=== PATIENT | male | born 1950 | race Caucasian/White ===

== ENCOUNTER 2025-07-06 13:14 | Inpatient (IN) | payer OTHER, MEDICARE ==
[~2025-07-06] VITALS: Ht 190.5 cm; Wt 80.0 kg
--- NOTE | 2025-07-06 13:29 | ELECTROCARDIOGRAPH REPORT ---
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
--- NOTE | 2025-07-06 14:27 | RADIOLOGY REPORT ---
CHEST RADIOGRAPH Indication: CP Technique: Single frontal view of the chest was obtained Comparison: None FINDINGS: Lines and Tubes: None Lungs: No focal consolidation. Pleura: No effusion. No pneumothorax. Cardiomediastinal contours: Unremarkable Bones: No acute osseous abnormality. IMPRESSION: No acute cardiopulmonary disease.
[2025-07-06 14:29] LABS: MEAN PLATELET VOLUME 6.7 FL (7.4-10.4); RED CELL DISTRIBUTION WIDTH 27.9 % (11.5-14.5)
[2025-07-06 14:47] LABS: CREATININE 1.27 MG/DL (0.60-1.10); PRO BRAIN NATRIURETIC PEPTIDE 1441 PG/ML (0-125); TOTAL CARBON DIOXIDE 29.5 MMOL/L (24-32); eCRCL 59 ML/MIN; eGFR 56 ML/MIN
[2025-07-06 15:07] LABS: PLATELET ESTIMATE NORMAL
--- NOTE | 2025-07-06 16:00 | Physician Documentation ---
History of Present Illness General Chief Complaint: Weakness Stated Complaint: MULTIPLE MED COMPLAINTS Time Seen by MD: 15:30 History of Present Illness Initial Comments Patient is a 74-year-old male with a history of lifelong smoking (he quit five years ago) and COPD (takes daily Spiriva and has a home nebulizer which he rarely uses) on oxygen at 4 L at home. He comes in today for generalized weakness and 20 lb weight loss over the past six weeks. Medication Reconciliation Allergies: Coded Allergies: No Known Allergies (Unverified , 07/06/25) Scheduled Ascorbic Acid* (Vitamin C*), 1 TAB PO Q12H, (Reported) Aspirin (Aspirin), 1 TAB PO DAILY, (Reported) Atorvastatin Calcium* (Lipitor*), 1 TAB PO DAILY, (Reported) Carvedilol (Carvedilol), 1 TAB PO Q12H, (Reported) Carvedilol* (Coreg*), 1 TAB PO Q12H, (Reported) Empagliflozin (Jardiance), 1 TAB PO DAILY, (Reported) Lisinopril (Lisinopril), 0.5 TAB PO DAILY, (Reported) Omeprazole (Prilosec), 1 CAP PO DAILY, (Reported) Scheduled PRN Clonazepam (Klonopin), 1 TAB PO Q12H PRN PRN for anxiety, (Reported) Miscellaneous Medications [vit d 3], 25 MCG PO, (Reported) Review of Systems ROS Constitutional: 20 lb weight loss and low-grade fever over the past several weeks. HEENT: Denies hearing loss, sinus pressure or visual changes. Respiratory: Chronic cough and shortness of breath, worsening Cardiovascular: Denies chest pain, pain while walking (claudication), edema or palpitations. Gastrointestinal: Denies abdominal pain, blood in stool, constipation, diarrhea, heartburn, loss of appetite, nausea or vomiting. Genitourinary: Denies painful urination (dysuria), excessive amount of urine (polyuria) or urinary frequency. Metabolic/Endocrine: Denies cold intolerance, heat intolerance, excessive thirst (polydipsia) or excessive hunger (polyphagia). Neurological: Denies dizziness, extremity numbness, extremity weakness, headaches, seizures or tremors. Psychiatric: Denies anxiety or depression. Integumentary: Rash on upper anterior chest and on the back Musculoskeletal: Denies back pain, joint pain, joint swelling or neck pain. Hematologic: Denies easily bleeding, easily bruises, lymphedema or issues with blood clots. Immunologic: Denies food allergies or seasonal allergies. Physical Exam Physical Exam Vital Signs: Temperature: 97.8, Source: Oral, Heart Rate: 90, Respiratory Rate: 19, BP: 113/76, Pulse Oximetry: 98, Weight: 80.000 Oxygen Flow Rate: 4.0 Physical Exam Physical Exam Vitals and nursing note reviewed. Constitutional: General: Patient is awake, alert, oriented x 4 in no acute distress and well appearing. Speech is clear and lucid. Appearance: Normal appearance. Patient is not ill-appearing, toxic-appearing or diaphoretic. HENT: Head: Normocephalic and atraumatic. Mouth/Throat: Mouth: Mucous membranes are moist. Pharynx: Oropharynx is clear. Eyes: General: No scleral icterus. Extraocular Movements: Extraocular movements intact. Pupils: Pupils are equal, round, and reactive to light. Neck: Supple, no Kernig or Brudzinski sign. Cardiovascular: Rate and Rhythm: Normal rate and regular rhythm. Heart sounds: No murmur heard. Pulmonary: Effort: No respiratory distress. Breath sounds: No wheezing, rhonchi or rales. Abdominal: General: There is no distension. Palpations: There is no fluid wave, hepatomegaly or mass. Tenderness: There is no abdominal tenderness. There is no guarding. Musculoskeletal: General: No swelling or deformity. Skin: Coloration: Skin is not jaundiced. Findings: Maculopapular rash of the back and upper chest anteriorly Neurological: Mental Status: Patient is alert. Progress Results/Orders Results/Orders Orders - ANNITA CHING MD Chest,Single View (07/06/25 13:41) Monitor (07/06/25 13:25) Saline Lock (07/06/25 13:25) Oxygen (07/06/25 13:25) Hs Troponin I W Calculations (07/06/25 16:25) Urinalysis, Cult If Indicated (07/06/25 15:51) CMP (07/06/25 15:51) Drug Screen, Urine (07/06/25 15:51) Ethanol (07/06/25 15:51) LA (07/06/25 15:51) Culture Blood (07/06/25 15:51) MG (07/06/25 15:51) Page Hospitalist (07/06/25 16:11) Completed Orders - ANNITA CHING MD Chest,Single View (07/06/25 13:41) Cbc/Diff (07/06/25 13:25) BMP (07/06/25 13:25) PBNP (07/06/25 13:25) Electrocardiogram (07/06/25 13:25) Hs Troponin I W Calculations (07/06/25 13:25) Hs Troponin I W Calculations (07/06/25 15:25) Vital Signs 07/06/25 07/06/25 07/06/25 13:18 15:09 16:14 Temp 97.8 Pulse 96 90 Resp 19 B/P (MAP) 96/60 113/76 (88) Pulse Ox 95 98 95 O2 Delivery Nasal Cannula* O2 Flow Rate 4.0 4 FiO2 36 Laboratory Tests Test 07/06/25 14:02 07/06/25 15:42 White Blood Count 9.1 Red Blood Count 3.60 L Hemoglobin 10.2 L Hematocrit 31.5 L Mean Corpuscular Volume 87.5 Mean Corpuscular Hemoglobin 28.4 Mean Corpuscular Hemoglobin Concent 32.4 L Red Cell Distribution Width 27.9 H Platelet Count 361 Mean Platelet Volume 6.7 L Neutrophils (%) (Auto) 79.0 H Lymphocytes (%) (Auto) 10.4 L Monocytes (%) (Auto) 6.2 Eosinophils (%) (Auto) 3.3 Basophils (%) (Auto) 1.1 H Neutrophils # (Auto) 7.2 Lymphocytes # (Auto) 1.0 L Monocytes # (Auto) 0.6 Eosinophils # (Auto) 0.3 Basophils # (Auto) 0.1 CBC Comment Platelet Estimate Normal Red Blood Cell Morphology Perf Polychromasia 1+ Basophilic Stippling Anisocytosis 3+ Schistocytes Few Sodium Level 135 Potassium Level 4.4 Chloride Level 100 Carbon Dioxide Level 29.5 Anion Gap 6 L Blood Urea Nitrogen 18 Creatinine 1.27 H Estimated GFR/1.73 m2 56 BUN/Creatinine Ratio 14.2 Glucose Level 109 H Calcium Level 8.9 Troponin I High Sensitivity 58 43 Pro-B-Type Natriuretic Peptide 1441 H Albumin 3.0 L Chemistry Comments Troponin I High Sens Percent Delta 25 Troponin I Hi Sens Absolute Change -15 Medical Decision Making Findings This 74-year-old man with essentially lifelong smoking history, COPD has had unintended weight loss over the past several weeks, a low-grade fever and increasing shortness of breath. I am going to get him admitted for further evaluation. Departure Disposition: ADMITTED INPATIENT Admitted to Inpatient Unit: to hospitalist Admission Level of Care: Med/Surg Impression: Primary Impression: Generalized weakness Additional Impressions: Weight loss, abnormal Fever Condition: Stable Referrals: NO PRIMARY CARE PROVIDER (PCP) Signature Scribe Signature: . Attestation: . ANNITA CHING MD Jul 06, 2025 16:00
[2025-07-06] MEDS ORDERED: vit d 3 PO (16:13)
[2025-07-06] MEDS ORDERED: CLON-850 PO (16:13)
[2025-07-06] MEDS ORDERED: LISI20TA28 PO (16:13)
[2025-07-06] MEDS ORDERED: VITC500T PO (16:13)
[2025-07-06] MEDS ORDERED: EMPA25TA PO (16:13)
[2025-07-06] MEDS ORDERED: ATOR40TA PO (16:13)
[2025-07-06] MEDS ORDERED: OMEP40CA21 PO (16:13)
[2025-07-06] MEDS ORDERED: CARV-50 PO (16:13)
[2025-07-06] MEDS ORDERED: ASPI-1265 PO (16:13)
[2025-07-06] MEDS: normal saline 1000ml 1,000 ML IV SCH (16:20)
[2025-07-06] MEDS ORDERED: magnesium hydroxide 30ml (MOM) UD suspension PO PRN (16:20)
[2025-07-06] MEDS ORDERED: mag hydrox/Alum hydrox/simeth 30ml oral suspension PO PRN (16:20)
[2025-07-06] MEDS ORDERED: ondansetron/PF 4mg/2ml inj IV PRN (16:20)
[2025-07-06] MEDS ORDERED: potassium Cl 20 mEq SR tablet PO PRN ×2 (16:20)
[2025-07-06] MEDS ORDERED: magnesium sulf-water 4G/100mL 100 ML IV PRN (16:20)
[2025-07-06] MEDS ORDERED: HYDROcodone/acetaminophen 5mg/325mg tablet PO PRN (16:20)
[2025-07-06] MEDS ORDERED: magnesium sulf-water 2g/50mL 50 ML IV PRN (16:20)
[2025-07-06] MEDS ORDERED: magnesium Cl slow-release 64mg tablet PO PRN (16:20)
[2025-07-06] MEDS ORDERED: HYDROcodone/acetaminophen 10/325mg tab PO PRN (16:20)
[2025-07-06] MEDS ORDERED: ondansetron 4mg rapidly disintigrating tab PO PRN (16:20)
[2025-07-06] MEDS ORDERED: potassium Cl 40MEQ/1/2NS 520ml 520 ML IV PRN (16:20)
[2025-07-06 17:05] LABS: LEUKOCYTE ESTERASE ,URINE NEGATIVE (Neg); NITRITES, URINE NEGATIVE (Neg); OCCULT BLOOD,URINE NEGATIVE (Neg)
--- NOTE | 2025-07-06 17:06 | HISTORY AND PHYSICAL ---
History & Physical Providers to CC ~ History of Present Illness Reason for Admit\Complaint: FTT, acute COPD exacerbation, CANDIDO History of Present Illness Vadim Burris is a 74-year-old male with a past medical history of lifelong smoking, COPD on home 4L oxygen as needed, CHF, TIA who was brought to the ED accompanied by his niece with chief complaints of acutely declining stamina, generalized weakness, fatigue, increasing shortness of breath, loss of appetite, 20 lb unintentional weight loss over six weeks, intermittent low-grade fever and chills, diffuse pruritic rashes in chest and bilateral lower extremities x 6 weeks. Patient reports intermittently being on home oxygen prior to onset of reported symptoms, however due to progressively worsening shortness of breath he has been on continuous oxygen for the past six weeks. Patient denies prior CT/CAD, CVA, cardiac arrhythmia, DVT/PE, or GIB. Patient denies known malignancy. Patient denies chest pain, palpitations, abdominal pain, n/v/d, melena, hematochezia, hematemesis. Patient is to be admitted for further workups and treatment. Allergies: Coded Allergies: No Known Allergies (Unverified , 07/06/25) Home Medications Home Medications Active Reported [vit d 3] 25 Mcg PO Aspirin 81 Mg Tab.chew 1 Tab PO DAILY 30 Days Vitamin C* (Ascorbic Acid) 500 Mg Tablet 1 Tab PO Q12H 30 Days Prilosec (Omeprazole) 40 Mg Capsule 1 Cap PO DAILY 30 Days Lisinopril 20 Mg Tablet 0.5 Tab PO DAILY 30 Days Coreg* (Carvedilol) 12.5 Mg Tablet 1 Tab PO Q12H 30 Days Carvedilol 12.5 Mg Tablet 1 Tab PO Q12H 30 Days Klonopin (Clonazepam) 0.5 Mg Tablet 1 Tab PO Q12H PRN PRN 30 Days Jardiance (Empagliflozin) 25 Mg Tablet 1 Tab PO DAILY 30 Days Lipitor* (Atorvastatin Calcium) 40 Mg Tablet 1 Tab PO DAILY 30 Days Past Medical History Past Medical History CHF COPD TIA Hypertension Past Surgical History Surgical History Comment Noncontributory Past Social History Social History Comment Alcohol: Occasionally Tobacco: Former smoker, quit 5 years ago, 50-pack year history Illicit drug use: Marijuana Living situation: Lives at home alone ROS ROS Other than positives in HPI, all 14 review of systems are negative Exam Vitals: Vital Signs Date Time Temp Pulse Resp B/P (MAP) Pulse Ox O2 Delivery O2 Flow Rate FiO2 07/06/25 16:23 23 07/06/25 16:14 95 Nasal Cannula* 4 36 07/06/25 15:09 90 07/06/25 13:18 97.8 General: Generalized weakness, fatigued, A&Ox 3, NAD HEENT: Normocephalic, PERRLA Neck: Supple, trachea midline, no JVD Chest: Clear to auscultation bilaterally Cardiovascular: RRR, S1&S2 Abdomen: Soft and nontender Extremities: No cyanosis/clubbing/or edema Central Nervous System: CN II-XII intact, no focal deficits Musculoskeletal: No paraspinal muscle tenderness, no muscle spasm Skin: Diffuse rashes in chest, bilateral lower extremities Diagnostic Data Last Recorded Lab Results: 07/06/25 1402 07/06/25 1402 Additional Plan Assessment & Plan FTT Acute COPD exacerbation Acute hypoxic respiratory failure 2/2 above CANDIDO vs CKD Normocytic anemia Hx Chronic tobacco abuse -vss, on 4L O2, pBNP unremarkable, bicarb wnl, CXR negative -start steroid, bronchodilators, Zithromax -follow CT chest, UA, TSH/T4, UDS, PT eval CHF HTN TIA -pending med rec DVT/VTE prophylaxis: Heparin Code status: Full code I spent a total of 35 minutes discussing Advanced Care Planning measures with the patient. Advance care planning: Discussed with patient the importance of advance care planning in case of emergent situation. We discussed various resuscitative measures/ ACP with the patient at the time of admission. Patient voiced understanding and patient has decided on a full code status. Date of Service: Jul 06, 2025 Billing Provider: ELIZABETH MEJIA Common Visit Codes: [id number] INP/OBS CARE (HIGH) Secondary Visit Codes: [id number] CARE PLAN 30 MINUTES ELIZABETH MEJIA Jul 06, 2025 17:06
[2025-07-06 17:10] LABS: UA COLLECTION TYPE URINAL
[2025-07-06] MEDS ORDERED: ipratropium/albuterol 3ml nebule NEB PRN (17:10)
[2025-07-06] MEDS ORDERED: albuterol 2.5 MG/3 ML nebule NEB PRN (17:10)
[2025-07-06 17:11] LABS: MUCUS STRANDS NONE SEEN /LPF (Neg); SQUAMOUS EPITHELIAL CELL,UR FEW /LPF (FEW)
[2025-07-06 17:15] LABS: CREATININE 1.14 MG/DL (0.60-1.10); TOTAL CARBON DIOXIDE 25.6 MMOL/L (24-32); eCRCL 66 ML/MIN; eGFR 63 ML/MIN
[2025-07-06 17:19] LABS: URINE AMPHETAMINE SCREEN NEGATIVE (Neg); URINE BARBITUATE SCREEN NEGATIVE (Neg); URINE BENZODIAZEPINES SCREEN NEGATIVE (Neg); URINE CANNABINOID SCREEN POSITIVE (Neg); URINE COCAINE SCREEN NEGATIVE (Neg); URINE METHADONE SCREEN NEGATIVE (Neg); URINE OPIATE SCREEN NEGATIVE (Neg); URINE PHENCYCLIDINE SCREEN NEGATIVE (Neg)
[2025-07-06 17:30] LABS: ETHANOL < 10 MG/DL (<10)
[2025-07-06 17:38] VITALS: PULSE 89; RESP 19; O2SAT 100
[2025-07-06] MEDS: azithromycin/NS 500mg/250ml 250 ML IV ONE (17:58)
--- NOTE | 2025-07-06 19:39 | RADIOLOGY REPORT ---
CT SCAN CHEST WITHOUT CONTRAST CLINICAL HISTORY: malignancy, FTT, SOB TECHNIQUE: Helical axial scans are obtained from the thoracic inlet to the upper abdomen without intr avenous contrast injection. Coronal and sagittal reformatted images were generated from thin-section reconstructions. One or more of the following radiation dose reduction techniques were used for this examination: automated exposure control, adjustment of the mA and/or kV according to patient size, us e of iterative reconstruction technique. COMPARISON: DI CHEST,SINGLE VIEW on DOS: 07/06/25 FINDINGS: Evaluation of vascular and other mediastinal structures is limited due to lack of contrast administra tion. Mediastinum: Heart is normal in size. Coronary artery calcifications noted. No pericardial effusion. Multiple small scattered mediastinal lymph nodes. Lung parenchyma: Multiple scattered spiculated nodules in the lower lobes. Larger lesion free to be pleural-based measures approximately 1.7 cm posteriorly in the left lower lobe. No lobar consolidatio n identified. Pleura: No sizable pleural effusion or pneumothorax. Chest wall/axillae: No axillary lymphadenopathy is noted. Upper Abdomen: No acute findings as visualized. IMPRESSION: Multiple scattered spiculated nodules in the bilateral lower lobes suspicious for malignancy.
[2025-07-06 19:55] VITALS: BP 109/57; PULSE 94; RESP 20; TEMP 98.7; O2SAT 97
[2025-07-06] MEDS: K and/or MAG REPLACEMENT MC SCH (20:00)
[2025-07-06] MEDS: docusate sod 100mg capsule PO SCH (20:00)
[2025-07-06] MEDS ORDERED: CHOL25CA2 PO (20:04)
[2025-07-06] MEDS: ipratropium/albuterol 3ml nebule NEB SCH (21:10)
[2025-07-06 21:11] VITALS: PULSE 95; RESP 16; O2SAT 90; O2SAT 92
[2025-07-06 21:21] VITALS: PULSE 88; RESP 16
[2025-07-06] MEDS: heparin, porcine 5000 units/ml vial SQ SCH (21:49)
[2025-07-06 22:00] VITALS: BP 87/40; PULSE 90; RESP 13; TEMP 97.5; O2SAT 96
[2025-07-07] VITALS (13 sets, daily range): BP systolic 103–115; BP diastolic 61–72; PULSE 80–93; RESP 12–20; TEMP 97.6–97.9; O2SAT 92–95
[2025-07-07 05:54] LABS: MEAN PLATELET VOLUME 7.1 FL (7.4-10.4); RED CELL DISTRIBUTION WIDTH 27.5 % (11.5-14.5)
[2025-07-07 06:09] LABS: CREATININE 1.01 MG/DL (0.60-1.10); TOTAL CARBON DIOXIDE 23.2 MMOL/L (24-32); eCRCL 75 ML/MIN; eGFR 73 ML/MIN
[2025-07-07] MEDS: PERFLUTREN PROTEIN-A MICROSPHR (Optison) 0.22 MG/ML 3ML VIAL IV ONE (07:20)
[2025-07-07] MEDS: pantoprazole 40mg Tablet.DR PO SCH (07:43)
[2025-07-07] MEDS: azithromycin/NS 500mg/250ml 250 ML IV SCH (07:45)
[2025-07-07] MEDS: EMPAGLIFLOZIN 25 MG TABLET PO SCH (09:24)
[2025-07-07] MEDS ORDERED: iohexol 300mg/ml 100ml inj. ONE (10:36)
--- NOTE | 2025-07-07 12:59 | RADIOLOGY REPORT ---
Procedure: CT CT CHEST ABDOMEN PELVIS W/ IV CONTRAST 07/07/2025 12:13 PM Indication: malignancy Comparison Study: CT CT CHEST on DOS: 07/06/25 Technique: Axial images were obtained and reformatted in coronal and sagittal planes prior to and fol lowing IV administration of 150 mL of Omnipaque 300. All CT scans at this medical facility are perfor med using dose modulation techniques as appropriate to a performed exam including the following: Auto mated exposure control was utilized; adjustment of the MA and/or KV according to patient size; and us e of iterative reconstruction technique. CT Dose: CTDI volume is 30 mGy. Dose-length product is 1698 mGy*cm FINDINGS: Chest: Lower neck: Unremarkable. Cardiomediastinal: Heart size is borderline. No pericardial effusion. There is coronary artery calci fication.. Lungs: Traction bronchiectasis in the lower lung zones. There is a 2 cm pleural-based nodule posteri oscar in the left lower lung zone. 2 ill-defined densities in the left lower lobe 1 abutting the major fissure measuring 1.7 cm in the other abutting the pleural surface measuring 1.6 cm There are no enlarged axillary or mediastinal lymph nodes. On bone windows there are no lytic or blastic lesions of bone Abdomen and pelvis: Hepatobiliary: Unremarkable. No focal hepatic masses. No gallstones or biliary dilatation Spleen: Unremarkable. Pancreas: Unremarkable. Adrenal Glands: Unremarkable. tract: The kidneys are normal in size bilaterally without hydronephrosis or nephrolithiasis. The u rinary bladder is unremarkable. GI tract: The stomach is grossly normal in appearance. No evidence of small bowel obstruction. The la rge bowel is unremarkable except for sigmoid diverticulosis without diverticulitis.. Appendix normal. Lymphatics: No mesenteric, retroperitoneal or periportal lymphadenopathy. Vasculature: The abdominal aorta is normal in in caliber. Pelvic Organs: Unremarkable. Bladder is smooth walled. No enlargement of the prostate gland. Bones/soft tissues: No acute abnormality. Other: Surgical clips left inguinal region. Question of prior hernia repair IMPRESSION: 1. There are small ill-defined parenchymal and pleural densities in the left lower lung zone. Whethe r these are neoplastic or postinflammatory is uncertain as there are no previous exams available for comparison. May consider 6-month follow-up or possibly PET-CT 2. No evidence of malignancy in the abdomen or pelvis. There is sigmoid diverticulosis without divert iculitis.
--- NOTE | 2025-07-07 15:16 | PROGRESS NOTE ---
Daily Progress Note Providers to CC ~ Antibiotic Timeout Antibiotic Ordered?: Yes Subjective No acute events overnight. Patient examined at bedside. No new complaints, not in acute distress. Patient denies chest pain, sob, palpitations, abdominal pain, n/v/d. Vss, labs unremarkable. CT chest multiple spiculated nodules in b/l lower lobes suspicious for malignancy, CT chest/abdomen/pelv shows 2 cm pleural-based nodule posteriorly in the left lower lung zone. 2 ill-defined densities in the left lower lobe 1 abutting the major fissure measuring 1.7 cm in the other abutting the pleural surface measuring 1.6 cm. No evidence of malignancy in the abdomen or pelvis. Consulted welding instructor Dr. Lincoln. Objective Vital Signs Date Time Temp Pulse Resp B/P (MAP) Pulse Ox O2 Delivery O2 Flow Rate FiO2 07/07/25 11:13 88 16 Room Air 0.0 07/07/25 11:08 92 21 07/07/25 11:00 97.6 109/72 (84) Result Diagram: 07/07/2543107/07/25 043 Physical Exam General: Generalized weakness, fatigued, A&Ox 3, NAD HEENT: Normocephalic, PERRLA Neck: Supple, trachea midline, no JVD Chest: Clear to auscultation bilaterally Cardiovascular: RRR, S1&S2 Abdomen: Soft and nontender Extremities: No cyanosis/clubbing/or edema Central Nervous System: CN II-XII intact, no focal deficits Musculoskeletal: No paraspinal muscle tenderness, no muscle spasm Skin: Diffuse rashes in chest, bilateral lower extremities Problem\Assessment\Plan Assessment & Plan FTT Acute COPD exacerbation Acute hypoxic respiratory failure 2/2 above CANDIDO vs CKD Normocytic anemia Hx Chronic tobacco abuse -vss, on 4L O2, pBNP unremarkable, bicarb wnl, CXR negative, TSH/T4 wnl, UA negative UTI -CT chest multiple spiculated nodules in b/l lower lobes suspicious for malignancy, CT chest/abdomen/pelv shows 2 cm pleural-based nodule posteriorly in the left lower lung zone. 2 ill-defined densities in the left lower lobe 1 abutting the major fissure measuring 1.7 cm in the other abutting the pleural surface measuring 1.6 cm. No evidence of malignancy in the abdomen or pelvis. -continue steroid, bronchodilators, empirical abx, prn supplemental oxygen, c onsulted welding instructor Dr. Lincoln who agreed for outpatient f/u CHF HTN TIA -07/07: pending med rec DVT/VTE prophylaxis: Heparin Code status: Full code Date of Service: Jul 07, 2025 Billing Provider: ELIZABETH MEJIA Common Visit Codes: [id number] INP/OBS CARE(HIGH) ELIZABETH MEJIA Jul 07, 2025 15:16
[2025-07-07] MEDS: CefTRIAXone/D5W-Rocephin 1gm 50 ML IV ONE (17:33)
--- NOTE | 2025-07-07 19:06 | CARDIOLOGY REPORT ---
APPROVED REPORT EXAM: Comprehensive 2D, Doppler, and color-flow Echocardiogram. 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 136.6 cm/s AoV VTI 26.9 cm AO Peak GR. 7.5 mmHg AO Mean GR. 4 mmHg LVOT VTI 22.15 cm LVOT Peak Kyree. 95.4 cm/s CHARLES(VTI)/BSA 2.93 cm2/m2 CHARLES (VTI) 2.93 cm2 Mitral Valve MV Peak Gr. 6 mmHg MV PHT 60 ms MVA (PHT) 3.67 cm2 MV QDwt541.6 cm/s LEFT VENTRICLE Normal LV size and wall thickness. Overall systolic function is normal. LVEF is 60%. RIGHT VENTRICLE RV is nmoderately dilated with normal function. ATRIA The left atrium size is normal. AORTIC VALVE Trileaflet AV appears mildly sclerotic without stenosis. No insufficiency. MITRAL VALVE Mild MV annular calcification without stenosis. Trace regurgitation. TRICUSPID VALVE TV appears structurally normal with trace regurgitation. PULMONIC VALVE Normal PV without stenosis, no insufficiency. GREAT VESSELS The aortic root is normal in size. PERICARDIUM Normal pericardium. No effusion. Other Information Study Quality: Adequate Conclusion Normal LV size and wall thickness. Overall systolic function is normal. LVEF is 60%. RV is nmoderately dilated with normal function. The left atrium size is normal. Trileaflet AV appears mildly sclerotic without stenosis. No insufficiency. Mild MV annular calcification without stenosis. Trace regurgitation. TV appears structurally normal with trace regurgitation. Normal pericardium. No effusion.
[2025-07-07] MEDS: VANCOmycin 1250MG/NS 250ml Bag 250 ML IV SCH (21:32)
[2025-07-08] VITALS (13 sets, daily range): BP systolic 96–121; BP diastolic 54–75; PULSE 70–80; RESP 16–19; TEMP 97.6–97.8; O2SAT 93–98
[2025-07-08 04:34] LABS: MEAN PLATELET VOLUME 6.9 FL (7.4-10.4); RED CELL DISTRIBUTION WIDTH 27.5 % (11.5-14.5)
[2025-07-08 04:56] LABS: CREATININE 1.31 MG/DL (0.60-1.10); TOTAL CARBON DIOXIDE 22.9 MMOL/L (24-32); eCRCL 58 ML/MIN; eGFR 54 ML/MIN
[2025-07-08] MEDS ORDERED: CefTRIAXone/D5W-Rocephin 1gm 50 ML IV SCH (08:00)
--- NOTE | 2025-07-08 20:13 | PROGRESS NOTE ---
Daily Progress Note Providers to CC ~ Antibiotic Timeout Antibiotic Ordered?: Yes Subjective Patient was seen in presence of nursing staff and her daughter was on phone to discuss his current medical status. [facility] [place] [facility] and he is aware about his lung nodules. Patient's blood cultures currently positive. Objective Vital Signs Date Time Temp Pulse Resp B/P (MAP) Pulse Ox O2 Delivery O2 Flow Rate FiO2 07/08/25 19:53 79 18 Nasal Cannula 2.0 07/08/25 19:47 95 28 07/08/25 10:30 97.6 96/54 (68) Result Diagram: 07/08/2541307/08/25413 General-patient not in any acute distress, alert awake oriented, chronically ill-appearing HEENT-atraumatic normocephalic, neck supple without elevated JVD, no thyromegaly or carotid bruit. No lymphadenopathy bilaterally. Eyes-no icterus or pallor seen in eyes Chest-decreased to auscultation bilaterally, breathing nonlabored no tachypnea, no wheezing, no crepitation, no crackles. Heart-S1-S2 normal, regular heart rate no murmur Abdomen bowel sounds positive on auscultation, soft nondistended nontender no guarding, no rigidity Skin no active skin rash Neurology-grossly intact, nonfocal alert awake oriented Extremity- no pedal edema able to move all 4 extremities Psychiatry - patient is not confused or agitated cooperated during physical examination Problem\Assessment\Plan Assessment & Plan Acute COPD exacerbation Acute hypoxic respiratory failure 2/2 above CANDIDO vs CKD Normocytic anemia Hx Chronic tobacco abuse -vss, on 4L O2, pBNP unremarkable, bicarb wnl, CXR negative, TSH/T4 wnl, UA negative UTI -CT chest multiple spiculated nodules in b/l lower lobes suspicious for malignancy, CT chest/abdomen/pelv shows 2 cm pleural-based nodule posteriorly in the left lower lung zone. 2 ill-defined densities in the left lower lobe 1 abutting the major fissure measuring 1.7 cm in the other abutting the pleural surface measuring 1.6 cm. No evidence of malignancy in the abdomen or pelvis. -continue steroid, bronchodilators, empirical abx, prn supplemental oxygen, c onsulted director of quantitative research Dr. Lincoln who agreed for outpatient f/u CHF HTN TIA Med reconciliation done for home medication DVT/VTE prophylaxis: Heparin Code status: Full code Patient's current updated medical condition labs diagnostic workup discussed with patient and her daughter ( on phone) . Patient's current condition is guarded we will continue to follow patient in AM . Date of Service: Jul 08, 2025 Billing Provider: TIERNEY ROSS MD Common Visit Codes: [id number] INP/OBS CARE(HIGH) TIERNEY ROSS MD Jul 08, 2025 20:13
[2025-07-08] MEDS: vancomycin/NS 1 GM ADD-VANTAGE 250 ML IV SCH (21:56)
[2025-07-08] MEDS: methylPREDNISolone sod succ/PF 40mg inj. IV SCH (21:56)
[2025-07-09 04:37] LABS: MEAN PLATELET VOLUME 7.0 FL (7.4-10.4); RED CELL DISTRIBUTION WIDTH 27.9 % (11.5-14.5)
[2025-07-09 04:57] LABS: CREATININE 1.11 MG/DL (0.60-1.10); TOTAL CARBON DIOXIDE 22.4 MMOL/L (24-32); eCRCL 68 ML/MIN; eGFR 65 ML/MIN
[2025-07-09 05:00] VITALS: O2SAT 93
[2025-07-09 06:19] VITALS: BP 136/80; PULSE 74; RESP 19; TEMP 98.3; O2SAT 93
[2025-07-09 07:19] VITALS: PULSE 77; PULSE 78; RESP 18; O2SAT 96
[2025-07-09 10:00] VITALS: BP 135/77; PULSE 83; RESP 17; TEMP 97.8; O2SAT 96
[2025-07-09 11:13] VITALS: PULSE 79; RESP 18; O2SAT 96
[2025-07-09 11:15] VITALS: PULSE 78; RESP 18
[2025-07-09] MEDS ORDERED: ALBU18HF2 IH (11:24)
[2025-07-09] MEDS ORDERED: LINE600T14 PO (11:24)
--- NOTE | 2025-07-09 20:52 | DISCHARGE SUMMARY ---
Discharge Summary Providers to CC ~ Discharge Summary Admission Diagnosis: FTT, hypoxic resp failure, CANDIDO Hospital Course DATE OF ADMISSION: July 06, 2025 DATE OF DISCHARGE: July 09, 2025 CBC testing done on July 09, 2025 WBC 12.1 hemoglobin 8.6 hematocrit 27.6 platelet count 300. Serum chemistry done on July 09, 2025 sodium 140 potassium 4.4 serum creatinine 1.11 GFR 65 procalcitonin, TSH 3.39. Blood culture showed Staphylococcus epidermidis, serology for COVID negative toxicology screen positive for cannabinoids. Urine testing showed blood sugar greater than 1000 no signs of UTI CT CHEST ABDOMEN PELVISIMPRESSION: 1. There are small ill-defined parenchymal and pleural densities in the left lower lung zone. Whether these are neoplastic or postinflammatory is uncertain as there are no previous exams available for comparison. May consider 6-month follow-up or possibly PET-CT 2. No evidence of malignancy in the abdomen or pelvis. There is sigmoid diverticulosis without diverticulitis. ECHOCARDIOGRAMConclusion Normal LV size and wall thickness. Overall systolic function is normal. LVEF is 60%. RV is nmoderately dilated with normal function. The left atrium size is normal. Trileaflet AV appears mildly sclerotic without stenosis. No insufficiency. Mild MV annular calcification without stenosis. Trace regurgitation. TV appears structurally normal with trace regurgitation. Normal pericardium. No effusion. CT CHESTIMPRESSION: Multiple scattered spiculated nodules in the bilateral lower lobes suspicious for malignancy. CHEST,SINGLE VIEWIMPRESSION: No acute cardiopulmonary disease. Discharge Diagnosis\\Comment: multiple spiculated nodules in bilateral lower lobes suspicious for malignancy, Acute COPD exacerbation Acute hypoxic respiratory failure 2/2 above CANDIDO vs CKD Normocytic anemia Hx Chronic tobacco abuse CHF HTN Cannabis use Generalized weakness Operations\\Procedures: None Consultants: None Complications: None Condition on DC: Stable New Medications: Albuterol Sulfate (Ventolin Hfa) 90 Mcg Hfa.aer.ad 2 PUFFS IH 5XD, #1 INHALER Linezolid (Linezolid) 600 Mg Tablet 1 TAB PO Q12H for 5 Days, #10 TAB 0 Refills Continued Medications: Ascorbic Acid* (Vitamin C*) 500 Mg Tablet 1 TAB PO Q12H for 30 Days, #60 TAB Aspirin (Aspirin) 81 Mg Tab.chew 1 TAB PO DAILY for 30 Days, #30 TAB Atorvastatin Calcium* (Lipitor*) 40 Mg Tablet 1 TAB PO DAILY for 30 Days, #30 TAB Carvedilol (Carvedilol) 12.5 Mg Tablet 1 TAB PO Q12H for 30 Days, #60 TAB 0 Refills Cholecalciferol (Vitamin D3) (Vitamin D3) 25 Mcg (1000 Unit) Capsule 1 CAP PO DAILY, CAP 0 Refills Clonazepam (Klonopin) 0.5 Mg Tablet 1 TAB PO Q12H PRN PRN for anxiety for 30 Days, #60 TAB 0 Refills Empagliflozin (Jardiance) 25 Mg Tablet 1 TAB PO DAILY for 30 Days, #30 TAB 0 Refills Lisinopril (Lisinopril) 20 Mg Tablet 0.5 TAB PO DAILY for 30 Days, #30 TAB Omeprazole (Prilosec) 40 Mg Capsule 1 CAP PO DAILY for 30 Days, #30 CAP Discharge Summary: As per admitting provider's history and physical note" Vadim Burris is a 74-year-old male with a past medical history of lifelong smoking, COPD on home 4L oxygen as needed, CHF, TIA who was brought to the ED accompanied by his niece with chief complaints of acutely declining stamina, generalized weakness, fatigue, increasing shortness of breath, loss of appetite, 20 lb unintentional weight loss over six weeks, intermittent low-grade fever and chills, diffuse pruritic rashes in chest and bilateral lower extremities x 6 weeks. Patient reports intermittently being on home oxygen prior to onset of reported symptoms, however due to progressively worsening shortness of breath he has been on continuous oxygen for the past six weeks. Patient denies prior GA/CAD, CVA, cardiac arrhythmia, DVT/PE, or GIB. Patient denies known malignancy. Patient denies chest pain, palpitations, abdominal pain, n/v/d, melena, hematochezia, hematemesis. Patient is to be admitted for further workups and treatment." During hospitalization patient was treated for Acute COPD exacerbation Acute hypoxic respiratory failure 2/2 above CANDIDO vs CKD Normocytic anemia Hx Chronic tobacco abuse -vss, on 4L O2, pBNP unremarkable, bicarb wnl, CXR negative, TSH/T4 wnl, UA negative UTI -CT chest multiple spiculated nodules in b/l lower lobes suspicious for malignancy, CT chest/abdomen/pelv shows 2 cm pleural-based nodule posteriorly in the left lower lung zone. 2 ill-defined densities in the left lower lobe 1 abutting the major fissure measuring 1.7 cm in the other abutting the pleural surface measuring 1.6 cm. No evidence of malignancy in the abdomen or pelvis. -continue steroid, bronchodilators, empirical abx, prn supplemental oxygen, consulted archivist political history Dr. Lincoln who agreed for outpatient f/u CHF HTN Med reconciliation done for home medication DVT/VTE prophylaxis: Heparin Code status: Full code Patient's current updated medical condition labs diagnostic workup discussed with patient and her daughter ( on phone) . Patient's clinical condition improved and she was feeling much better. She has been afebrile getting discharged home in stable condition. Patient was evaluated by Physical therapy team and she is able to ambulate. Patient is seen and examined on the day of discharge discharge instructions provided to the patient. All labs diagnostic workup and discharge plan discussed with patient in detail in visit before discharge all questions and concerns answered to the best of my professional medical knowledge.Please follow-up with primary care physician after hospital discharge if any further neurological concerns get the referral to Neurology specialist in outpatient setting or come to ER for further evaluation and management . Please follow-up with PCP, Dr Lincoln for lung nodules . Continue oxygen activity as tolerated. General-patient not in any acute distress, alert awake oriented, chronically ill-appearing HEENT-atraumatic normocephalic, neck supple without elevated JVD, no thyromegaly or carotid bruit. No lymphadenopathy bilaterally. Eyes-no icterus or pallor seen in eyes Chest-decreased to auscultation bilaterally, breathing nonlabored no tachypnea, no wheezing, no crepitation, no crackles. Heart-S1-S2 normal, regular heart rate no murmur Abdomen bowel sounds positive on auscultation, soft nondistended nontender no guarding, no rigidity Skin no active skin rash Neurology-grossly intact, nonfocal alert awake oriented Extremity- no pedal edema able to move all 4 extremities Psychiatry - patient is not confused or agitated cooperated during physical exam ination *Problems/Diagnosis: (1) Generalized weakness Status: Acute (2) COPD exacerbation Total Time Spent on D/C: > 30 Minutes Date of Service: Jul 09, 2025 Billing Provider: TIERNEY ROSS MD Common Visit Codes: 69521-BBG/OBS DISCH DAY >30min TIERNEY ROSS MD Jul 09, 2025 20:49
[2025-07-10] MEDS ORDERED: VANCOMYCIN LEVEL IV ONE (07:30)
== END 2025-07-09 13:52 | disposition home or self-care (01) | DRG 189 ==
LOC: ER 13:16 → ED HOLD 16:22 → SUR 3N 19:50
PROVIDERS: ADMIT Nurse Practitioner Family; ATTEND Nurse Practitioner Family
PROC: BW251ZZ Computerized Tomography (CT Scan) of Chest, Abdomen and Pelvis using Low Osmolar Contrast (ICD-10-PCS; principal; 2025-07-07)
DX: J96.01 Acute respiratory failure with hypoxia (principal); J44.1 Chronic obstructive pulmonary disease with (acute) exacerbation; G45.9 Transient cerebral ischemic attack, unspecified; I13.0 Hypertensive heart and chronic kidney disease with heart failure and stage 1 through stage 4 chronic kidney disease, or unspecified chronic kidney disease; N17.9 Acute kidney failure, unspecified; C34.92 Malignant neoplasm of unspecified part of left bronchus or lung; C34.91 Malignant neoplasm of unspecified part of right bronchus or lung; Z20.822 Contact with and (suspected) exposure to COVID-19; D64.9 Anemia, unspecified; Z72.0 Tobacco use; R62.7 Adult failure to thrive; I50.9 Heart failure, unspecified; N18.9 Chronic kidney disease, unspecified; F12.90 Cannabis use, unspecified, uncomplicated; Z79.82 Long term (current) use of aspirin; Z79.899 Other long term (current) drug therapy; Z86.73 Personal history of transient ischemic attack (TIA), and cerebral infarction without residual deficits; Z99.81 Dependence on supplemental oxygen; Z68.22 Body mass index [BMI] 22.0-22.9, adult
CPT/HCPCS: 36415; 71045; 71250; 71260; 74177; 80048; 80053; 80305; 80320; 81001; 83605; 83735; 83880; 84145; 84439; 84443; 84484; 85008; 85025; 87040; 87077; 87081; 87186; 87811; 93005; 93306; 94640; 94760; 97116; 97161; 99285; A4615; A6258; G0378; J0456; J0696; J1644; J2919; J3373; J3374; J7030; Q0163; Q9967